=== PATIENT | male | born 1990 | race Caucasian/White ===

== ENCOUNTER 2018-07-31 09:17 | Emergency (ER) | payer OTHER ==
[~2018-07-31] VITALS: Ht 177.8 cm; Wt 98.9 kg
[~2018-07-31 09:17] MED LIST: AZITHROMYCIN 2250 MG PO; NOHOMEMEDICATIONS
[2018-07-31 10:27] VITALS: BP 146/82
== END 2018-07-31 10:28 | disposition home or self-care (01) ==
LOC: M.ERS 09:17
DX: S86.911A Strain of unspecified muscle(s) and tendon(s) at lower leg level, right leg, initial encounter (principal); X58.XXXA Exposure to other specified factors, initial encounter; Y93.89 Activity, other specified; Y92.89 Other specified places as the place of occurrence of the external cause; Y99.8 Other external cause status